=== PATIENT | male | born 1970 | race Caucasian/White ===

== ENCOUNTER 2023-09-27 17:52 | Emergency (ER) | payer BC ==
[~2023-09-27 17:52] MED LIST: Amoxicillin 500 MG Cap ONE
[2023-09-27 18:02] VITALS: BP 117/67; PULSE 83
[2023-09-27] MEDS: Diphtheria,Pertussis(Acell),Tetanus Vaccine 0.5 ML Syringe IM ONE (18:05)
[2023-09-27] MEDS ORDERED: Acetaminophen/HYDROcodone 325-5 MG Tab PO ONE (18:27)
[2023-09-27] MEDS: Acetaminophen/HYDROcodone 325-10 MG Tab PO ONE (18:38)
[2023-09-27] MEDS: cefTRIAXone 1 GM Vial IM SCH (18:39)
[2023-09-27] MEDS: Lidocaine 1% with EPINEPHrine 1:100,000 50 ML MDV INFILT ONE (18:41)
[2023-09-27] MEDS: Lisinopril 20 MG Tab PO SCH (19:21)
[2023-09-27] MEDS: Bacitracin Oint 1 GM U/D Packet TOP ONE (19:26)
== END 2023-09-27 19:24 | disposition home or self-care (01) ==
LOC: LB.ED 17:52
DX: S61.442A Puncture wound with foreign body of left hand, initial encounter (principal); Z23 Encounter for immunization; Z79.82 Long term (current) use of aspirin; Z79.899 Other long term (current) drug therapy; W45.8XXA Other foreign body or object entering through skin, initial encounter
CPT/HCPCS: 10120; 73130-LT; 90471; 90715; 96372; 99283; 99283-25; A9270-GY; J0696